=== PATIENT | female | born 1965 | race Asian ===

== ENCOUNTER 2022-09-17 13:27 | Emergency (ER) | payer OTHER, SELFPAY ==
--- NOTE | ~2022-09-17 | XR_ITS ---
EXAMINATION: XR KNEE, LEFT CLINICAL INFORMATION: Laceration rule out foreign body. COMPARISON: None TECHNIQUE: Four views of the left knee. FINDINGS: Bones and soft tissues are normal. No fracture or joint effusion. Alignment is anatomic. Joint spaces are well maintained. No abnormal soft tissue calcification. XR/XR knee LT 2V IMPRESSION: Normal left knee. No radiopaque foreign body found.
[2022-09-17 13:44] VITALS: BP 154/79; PULSE 87; RESP 18; TEMP 36.6; O2SAT 98; BMI 26.2
--- NOTE | 2022-09-17 13:51 | ED_ITS ---
HPI - Wound/Laceration General Chief Complaint: Wound/Laceration <Abida Riley MD - Last Filed: 09/17/22 13:53> Stated Complaint: L knee inj 09/17/22 <Abida Riley MD - Last Filed: 09/17/22 13:53> Time Seen by Provider: 09/17/22 14:24 <Abida Riley MD - Last Filed: 09/17/22 13:53> Source: patient <CASSANDRA Cooper - Last Filed: 09/17/22 15:07> Mode of arrival: ambulatory <CASSANDRA Cooper - Last Filed: 09/17/22 15:07> Limitations: no limitations <CASSANDRA Cooper - Last Filed: 09/17/22 15:07> History of Present Illness HPI narrative: 57-year-old female presenting to the ED with complaints of a laceration to her left knee that occurred 2 days ago in her house when she took a glass plate out of the microwave that shattered and punctured her left knee. She reports that she she taped it. She reports she is not up-to-date on tetanus. She denies any other symptoms complaints concerns or injuries at this time. <CASSANDRA Cooper - Last Filed: 09/17/22 15:07> Onset (ago): day(s) (2) <CASSANDRA Cooper - Last Filed: 09/17/22 15:07> Extremity Location: left: knee <CASSANDRA Cooper - Last Filed: 09/17/22 15:07> Place: home <CASSANDRA Cooper - Last Filed: 09/17/22 15:07> Patient tetanus UTD: No <CASSANDRA Cooper - Last Filed: 09/17/22 15:07> Context: accidental <CASSANDRA Cooper - Last Filed: 09/17/22 15:07> Associated symptoms: none <CASSANDRA Cooper Last Filed: 09/17/22 15:07> Treatments prior to arrival: bandage <CASSANDRA Cooper Last Filed: 09/17/22 15:07> Related Data Home Medications: Previous Rx's Medication Instructions Recorded doxycycline monohydrate 100 mg 100 mg PO BID 10 days #20 tabs 09/17/22 tablet <Abida Riley MD - Last Filed: 09/17/22 13:53> Allergies/Adverse Reactions: Allergies Allergy/AdvReac Type Severity Reaction Status Date / Time No Known Allergies Allergy Unverified 07/19/20 17:46 <Abida Riley MD - Last Filed: 09/17/22 13:53> Review of Systems Review of Systems: Constitutional : No Fever, No Chills, Cardiovascular : No Chest Pain, No SOB Respiratory : No Dyspnea Gastrointestinal : No abdominal pain Musculoskeletal : No Joint Swelling Skin : positive skin laceration, No Foreign bodies, No rash, No surrounding erythema Neuro : No Weakness, No Numbness/tingling Psych : No SI/HI/thoughts of self injury <CASSANDRA Cooper - Last Filed: 09/17/22 15:07> Yes all other systems are reviewed and are negative <CASSANDRA Cooper - Last Filed: 09/17/22 15:07> [facility]LY [facility] Past Medical History Attestation statement: The following information was validated with the patient. <CASSANDRA Cooper - Last Filed: 09/17/22 15:07> Source: old records reviewed and nursing notes reviewed <CASSANDRA Cooper - Last Filed: 09/17/22 15:07> Physical Exam Vital Signs: Vital Signs: Last Vital Signs Temp 97.8 F 09/17/22 13:44 Pulse 87 09/17/22 13:44 Resp 18 09/17/22 13:44 BP 154/79 H 09/17/22 13:44 Pulse Ox 98 09/17/22 13:44 O2 Del Method 09/17/22 13:44 BMI result Body Mass Index 26.2 <Abida Riley MD - Last Filed: 09/17/22 13:53> Vital Signs: Last Vital Signs Temp 97.8 F 09/17/22 13:44 Pulse 87 09/17/22 13:44 Resp 18 09/17/22 13:44 BP 154/79 H 09/17/22 13:44 Pulse Ox 98 09/17/22 13:44 O2 Del Method 09/17/22 13:44 BMI result Body Mass Index 26.2 vital signs have been reviewed as normal and appeared to be correct. Blood pressure normal Heart rate normal. Respiration rate normal. Temperature normal. Oxygen saturation normal. <CASSANDRA Cooper - Last Filed: 09/17/22 15: 07> Appearance: Alert. Oriented X3. No acute distress. Head: Normal external exam. Normocephalic. Atraumatic. Eyes: PERRLA. EOMI. Conjunctiva and sclera normal. Eyelids normal. ENT: Pharynx normal. Uvula midline. Moist mucous membranes. Neck: Normal inspection. Neck supple. FROM. CVS: Normal heart rate and rhythm. Respiratory: No respiratory distress. Painless inspiration. Skin: Skin warm and dry. Normal skin color. Normal skin turgor. Patient with less than 1 cm healing laceration to left knee with mild surrounding erythema around the edges. No streaking/induration/fluctuance or foreign bodies or bony tenderness noted. No additional rashes/lesions/lacerations noted. Extremities: Extremities exhibit normal range of motion. Extremities nontender. Neuro: Oriented X 3. No motor deficit. No sensory deficit. Reflexes normal. Normal steady gait. No focal neuro deficits noted. Vascular: + radial pulses/+ 2 distal pedal pulses/+2 dorsalis pedis b/l. Normal cap refill. No cyanosis noted to upper extremity nails and lower extremity toes nails. <CASSANDRA Cooper - Last Filed: 09/17/22 15:07> Course Reevaluation(s) Reevaluation #1: 57-year-old female came in with old laceration above left knee for 2 days patient did not seek medical attention then came in today concerned of infection, had x-ray of the left knee triage and given 1st dose of doxycycline. <Abida Riley MD - Last Filed: 09/17/22 13:53> Time: 13:51 <Abida Riley MD - Last Filed: 09/17/22 13:53> Reevaluation #2: On exam patient has whole laceration. X-ray obtained and negative for any acute processes. Patient most likely cellulitis infection. Not consistent with abscess. Not consistent with septic joint. Tetanus updated. Will DC home antibiotics instructions return if any new or worsening symptoms follow up with primary care provider. Patient understands agrees with this plan. <CASSANDRA Cooper - Last Filed: 09/17/22 15:07> Time: 15:01 <CASSANDRA Cooper - Last Filed: 09/17/22 15:07> Medications Administered Discontinued Medications Generic Name Dose Route Start Last Admin Trade Name Freq PRN Reason Stop Dose Admin Diphtheria/Tetanus/Acell Pertussis 0.5 ml 09/17/22 14:56 09/17/22 15:03 Diphth,Pertus(Acell),Tet Adult 0.5 Ml Syringe IM 09/17/22 14:57 0.5 ml .ONCE ONE Administration Doxycycline Monohydrate 100 mg 09/17/22 13:50 09/17/22 14:48 Doxycycline Monohydrate 100 Mg Capsule PO 09/17/22 13:51 100 mg ONCE ONE Administration Doxycycline Monohydrate 100 mg 09/17/22 14:49 09/17/22 14:53 Doxycycline Monohydrate 100 Mg Capsule PO 09/17/22 14:50 100 mg ONCE ONE Administration <Abida Riley MD - Last Filed: 09/17/22 13:53> Medications Administered Discontinued Medications Generic Name Dose Route Start Last Admin Trade Name Freq PRN Reason Stop Dose Admin Diphtheria/Tetanus/Acell Pertussis 0.5 ml 09/17/22 14:56 09/17/22 15:03 Diphth,Pertus(Acell),Tet Adult 0.5 Ml Syringe IM 09/17/22 14:57 0.5 ml .ONCE ONE Administration Doxycycline Monohydrate 100 mg 09/17/22 13:50 09/17/22 14:48 Doxycycline Monohydrate 100 Mg Capsule PO 09/17/22 13:51 100 mg ONCE ONE Administration Doxycycline Monohydrate 100 mg 09/17/22 14:49 09/17/22 14:53 Doxycycline Monohydrate 100 Mg Capsule PO 09/17/22 14:50 100 mg ONCE ONE Administration <CASSANDRA Cooper - Last Filed: 09/17/22 15:07> MDM - Wound/Laceration Medical Records Attestation: I reviewed the patient's medical records. <CASSANDRA Cooper - Last Filed: 09/17/22 15:07> Imaging Data Left knee x-ray: Attestation: I personally reviewed and interpreted this imaging study as follows: <CASSANDRA Cooper - Last Filed: 09/17/22 15:07> Radiologist's impression: FINDINGS: Bones and soft tissues are normal. No fracture or joint effusion. Alignment is anatomic. Joint spaces are well maintained. No abnormal soft tissue calcification.? XR/XR knee LT 2V IMPRESSION: Normal left knee. No radiopaque foreign body found. <CASSANDRA Cooper - Last Joshua ed: 09/17/22 15:07> Discharge Plan Discharge Clinical Impression: Laceration, Cellulitis <Abida Riley MD - Last Filed: 09/17/22 13:53> Patient Disposition: Home, Self-Care <Abida Riley MD - Last Filed: 09/17/22 13:53> Instructions: Cellulitis (ED), Laceration Without Closure (ED) <Abida Riley MD - Last Filed: 09/17/22 13:53> Prescriptions: New doxycycline monohydrate 100 mg tablet 100 mg PO BID 10 Days Qty: 20 0RF <Abida Riley MD - Last Filed: 09/17/22 13:53> Referrals: Emerald Mayes PA [Emergency Midlevel Provider] - 2 days (your pcp) <Abida Riley MD - Last Filed: 09/17/22 13:53>
[2022-09-17] MEDS: Doxycycline Monohydrate 100 MG CAPSULE PO ×2 (14:48→14:53)
[2022-09-17] MEDS: Diphth,Pertus(ACell),Tet Adult 0.5 ML SYRINGE IM (15:03)
--- OUTSIDE RECORDS SUMMARY | 2022-09-17 15:16 | XMS_ITS | Continuity of Care Document ---
:1965 Author Organization [facility] Resendiz p Address [address] [place] [address], [address] [place] [id number]- Care Team Providers Name Role Phone Dorian Locke MD, Holden Franklin Primary Care Physician [place] [facility] [place]20 [facility] [facility] [address], [address] [place] [id number] Attending Physician: Nanette Nieto Admitting Physician: Nanette Nieto Referring Physician: AdmtrNanette Allergies, Adverse Reactions, Alerts Substance Reaction Severity Status NKA Active Medications oxybutynin 10 mg/24 hr oral tablet, extended release 1 tablet = 10 mg, By Mouth, Daily, # 30 tablet, 5 Refills, Maintenance, 11/12/20 10:16:00 EST, ER Tablet, [place], [place] - [phone], Partial fill upon patient request if the prescription is for a schedule II opioid drug., 149, cm,... Start Date: 11/12/20 Status: Orderedproaceline: Collagen skin proaceline: Collagen skin, Refills 0, Maintenance, 10/08/20 9:30:00 EST, Supply Start Date: 10/08/20 Status: Ordered Problem List Condition Effective Dates Status Health Status Informant Hyperlipidemia LDL goal Active <130(Confirmed) HTN (hypertension)(Confirmed) Active Urinary frequency(Confirmed) Active Hepatitis(Confirmed) Active Nocturia(Confirmed) Active Overweight(Confirmed) Active Sacroiliac joint pain(Confirmed) Active Vertigo(Confirmed) Active Social History Social History Type Response Smoking Status Never (less than 100 in life time) entered on: 10/08/20 Sex
== END 2022-09-17 15:28 | disposition home or self-care (01) ==
PROVIDERS: Emergency Provider Emergency Medicine Emergency Medical Services
DX: L03.116 Cellulitis of left lower limb (principal); S81.012A Laceration without foreign body, left knee, initial encounter; W25.XXXA Contact with sharp glass, initial encounter; Y93.G1 Activity, food preparation and clean up; Y92.010 Kitchen of single-family (private) house as the place of occurrence of the external cause; Y99.9 Unspecified external cause status
CPT/HCPCS: 73560; 90471; 90715; 99283; 99284

== ENCOUNTER 2025-07-28 14:03 | Emergency (ER) | payer OTHER, SELFPAY ==
[2025-07-28 14:15] VITALS: BP 162/71; PULSE 107; RESP 18; TEMP 37.2; O2SAT 96; BMI 26.1
[2025-07-28 14:49] LABS: Appearance Urine Turbid; PH 6.5 (5.0-9.0); Specific Gravity - Urine 1.025 (1.005-1.025); UMIC TRIGGER UACC YES
[2025-07-28 14:56] LABS: UACC Culture Trigger YES
--- NOTE | 2025-07-28 16:51 | ED.FEMALEGU ---
HPI - Female Genitourinary General Chief complaint: Urogenital-Female Stated complaint: enriquez when urinating, vaginal bleeding? Time Seen by Provider: 07/28/25 16:43 Source: patient, RN notes reviewed and old records reviewed Mode of arrival: ambulatory Limitations: no limitations History of Present Illness ED Provider: Raul CARRILLO Narrative: 59-year-old female presents for evaluation of burning with urination Patient reports her symptoms started this morning pain She reports she has noticed a significant amount of blood in the urine with some clots. She reports this has happened in the past and improved with the antibiotics. She has not seen a urologist Denies any fevers, chills On review of her external medical history she was given cefuroxime in the nitrofurantoin in November of this year Related Data Previous Rx's ?Medication ?Instructions ?Recorded doxycycline monohydrate 100 mg 100 mg PO BID 10 days #20 tabs 09/17/22 tablet nitrofurantoin 100 mg PO Q12H 7 days #14 caps 07/28/25 monohydrate/macrocrystals 100 mg capsule (Macrobid) phenazopyridine 200 mg tablet 200 mg PO TID PRN pain 6 doses #6 07/28/25 (Pyridium) tabs Allergies Allergy/AdvReac Type Severity Reaction Status Date / Time No Known Allergies Allergy Verified 07/28/25 14:16 Review of Systems Constitutional: Constitutional: Denies body ache(s), Denies chills and Denies fever(s) Gastrointestinal: Gastrointestinal: Denies abdominal pain Genitourinary: Genitourinary: Reports hematuria, Reports dysuria and Reports pelvic pain PMFSH Social History Social History Advance Directives: No Advance Directives Information Provided: No Physical Exam Vital Signs: Vital Signs: Last Vital Signs Temp 98.9 F 07/28/25 16:59 Pulse 107 H 07/28/25 16:59 Resp 18 07/28/25 16:59 BP 162/71 H 07/28/25 16:59 Pulse Ox 96 07/28/25 16:59 O2 Del Method Room Air 07/28/25 16:59 BMI result Body Mass Index 26.1 Const: General: healthy appearing, comfortable, no acute distress, alert and awake Nutritional Appearance: well nourished Orientation/consciousness: patient oriented x3 HEENT: Head: Yes normocephalic and Yes atraumatic Eyes: Eyelids: Yes eyelids normal Conjunctivae: conjunctivae normal Sclerae: sclerae normal Corneas: corneas normal Pupils: Equal, round and reactive pupils present EOM: EOMs intact bilaterally Neck: Neck: Yes full ROM Resp: Effort & Inspection: normal respiratory effort, able to speak in complete sentences and not labored Skin: General skin exam: elasticity normal Neuro: General: patient oriented x3 Cranial nerves: Yes Equal, round and reactive pupils present and Yes Bilaterally intact EOM present Cognition (Neuro): normal cognition Medical Decision Making Medical Decision Making MDM Narrative: 59-year-old female presents for evaluation of burning with urination and blood in the urine. Her urinalysis consistent with a UTI. She is quite well appearing, afebrile, she is hypertensive not hypotensive. She is slightly tachycardic which could be due to anxiety versus the UTI. We will treat with nitrofurantoin b.i.d. times 1 week. She will be referred to Urology given the hematuria Differential Diagnosis Differential Diagnoses: The differential diagnosis associated with the presentation includes UTI Obstructive uropathy Cystitis Bladder mass Lab Data MDM Lab Attestation statement: I reviewed the patient's lab results. Urinalysis with a significant amount of blood but also leukocyte esterase, white blood cell clumps Labs: Lab Results 07/28/25 Range/Units 14:26 Urine Color RED Urine Appearance Turbid Urine pH 6.5 (5.0-9.0) Ur Specific [place] 1.025 (1.005-1.025) Urine Protein 300 (3+) H (Neg-Trace) mg/dL Urine Glucose (UA) See Note (Negative) mg/dL Urine Ketones Trace (Negative) mg/dL Urine Blood Large (3+) H (Negative) Urine Nitrite See Note (Negative) Ur Leukocyte Esterase Small (1+) H (Negative) Urine RBC >20 H (0-2) /HPF Urine WBC 11-20 (0-5) /HPF Urine WBC Clumps Present Ur Squamous Epith Cells 0-2 (0-2) /HPF Urine Bacteria None Seen (None Seen) Hyaline Casts 6-10 (0-2) /LPF RBC Casts Present Discharge Plan Discharge Clinical Impression: Urinary tract infection Patient Disposition: Home, Self-Care Instructions: Urinary Tract Infection in Women (ED) Additional Instructions: Take the Macrobid twice daily for 1 week. You may also use Pyridium to help with the bladder discomfort. Follow up with Urology given the blood in the urine You may require a cystoscopy Follow up with your primary doctor, return for new or worsening symptoms [facility] will be contacting you within 2 business?days after being discharged from the Emergency?Department.? During this?phone call, they will inform you when your follow up appointment will be scheduled. If you have not received a call from [facility] after 2 business?days, please call the?office at [phone]. Prescriptions: New phenazopyridine [Pyridium] 200 mg tablet 200 mg PO TID PRN (Reason: pain) Qty: 6 0RF nitrofurantoin monohyd/m-cryst [Macrobid] 100 mg capsule 100 mg PO Q12H 7 Days Qty: 14 0RF Rx Instructions: must administer with a meal/food No Action doxycycline monohydrate 100 mg tablet 100 mg PO BID 10 Days Qty: 20 0RF Referrals: [facility] [Provider Group, Urology] Referral Note: hematuria Interventions: ED Discharge Assessment Last Done: 07/28/25 16:59 Discharge Date/Time: 07/28/25 17:00 Print Language: Bruneian
--- OUTSIDE RECORDS SUMMARY | 2025-07-28 16:55 | XMS_ITS | Clinical Summary ---
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 Name Role Phone Unavailable Primary Care Provider Unavailabl e Social History Tobacco Use Types Packs/Day Years Used Date Smoking Tobacco: Never Assessed Comments Unknown Sex and Gender Information Value Date Recorded Sex Assigned at Not on file Legal Sex Female 4:14 PM EST Gender Identity Not on file Sexual Orientation Not on file Plan of Treatment Health Maintenance Due Date Last Done Comments Hepatitis C Virus Screening 1965 HIV Screening 1980 DTaP/Tdap/Td Vaccines (1 - Tdap) 1986 Hepatitis B Vaccines (1 of 3 - 19+ 3-dose series) 08/02 Pneumococcal Vaccines 50+ (1 of 1 - PCV) 2017 Zoster (Shingles) Vaccine (1 of 2) 2017 COVID-19 Vaccine ( - season) 2025
--- OUTSIDE RECORDS SUMMARY | 2025-07-28 16:55 | XMS_ITS ---
Author Name [facility] Organization Unknown Care Team Organization Name Specialty Phone Email Start Date End Da te [facility] JAYJAY PEREZ Primary Care [email or web address] 05/07/2023 06/20/2024 [facility] Ranjeet Montague Primary Care 09/09/2022 06/20/2024
[2025-07-28 16:59] VITALS: BP 162/71; PULSE 107; RESP 18; TEMP 37.2; O2SAT 96
== END 2025-07-28 17:00 | disposition home or self-care (01) ==
PROVIDERS: Emergency Provider Emergency Medicine
DX: N39.0 Urinary tract infection, site not specified (principal)
CPT/HCPCS: 81001; 87086; 99282; 99283

== ENCOUNTER 2025-09-10 17:39 | Emergency (ER) | payer OTHER, SELFPAY ==
[2025-09-10 17:59] VITALS: BP 141/63; PULSE 85; RESP 18; TEMP 36.6; O2SAT 98; BMI 26.1
--- NOTE | 2025-09-10 18:02 | ED_ITS ---
HPI - General Adult General Chief complaint: Urogenital-Female Stated complaint: ? UTI Time Seen by Provider: 09/10/25 19:38 Source: patient Mode of arrival: ambulatory Limitations: no limitations History of Present Illness ED Provider: Mikael Morillo HPI narrative: 60 yold female presents to ED for dysuria and mild low back pain. Patient denies any nausea, vomiting, flank pain, fever, chills or abdominal pain. Patient denies any vaginal discharge or vaginal bleeding. Related Data Previous Rx's ?Medication ?Instructions ?Recorded doxycycline monohydrate 100 mg 100 mg PO BID 10 days # 20 tabs 09/17/22 tablet nitrofurantoin 100 mg PO Q12H 7 days #14 ca ps 07/28/25 monohydrate/macrocrystals 100 mg capsule (Macrobid) phenazopyridine 200 mg tablet 200 mg PO TID PRN pain 6 doses #6 07/28/25 (Pyridium) tabs naproxen 500 mg tablet 500 mg PO BID PRN pain #14 t abs 09/10/25 nitrofurantoin 100 mg PO Q12H 7 days #14 ca ps 09/10/25 monohydrate/macrocrystals 100 mg capsule (Macrobid) Allergies Allergy/AdvReac Type Severity Reaction Status Date / Time No Known Allergies Allergy Verified 09/10/25 18:03 Review of Systems 2 Review of Systems: Dysuria and back pain Yes all other systems are reviewed and are negative [facility], [facility] Social History Social History Advance Directives: No Advance Directives Information Provided: Yes Do you have a plan to hurt others: No Plan Physical Exam ED Vital Signs: Vital Signs - 24 hr 09/10/25 17:59 09/10/25 20:00 Temperature 98 F 98 F Pulse Rate 85 85 Respiratory Rate 18 18 Blood Pressure 141/63 H 141/63 H Pulse Oximetry 98 98 Oxygen Delivery Method Room Air Room Air BMI result Body Mass Index 26.1 Const General: cooperative, healthy appearing, comfortable, no acute distress, well developed, alert, awake and Physically active [facility] Head: Yes normal to inspection, Yes No palpable skull fracture present, Yes normocephalic and Yes atraumatic Eyes General: appearance normal, both eyes and all related structures Neck Neck: Yes normal visual inspection, Yes full ROM, Yes no lymphadenopathy, Yes no meningeal signs, Yes trachea midline, Yes supple, No anterior neck swelling and No tender Chest Chest palpation & inspection: normal inspection of the chest and normal palpation of entire chest wall Resp Effort & Inspection: normal respiratory effort and able to speak in complete sentences Auscultation: clear to auscultation bilaterally Cardio Jugular venous distension: no JVD Heart sounds: S1 normal heart sound present and S2 normal heart sound present GI Inspection: Yes normal to inspection Palpation (GI): Soft to palpation, not firm, nontender, no guarding and not rigid General: Yes no CVA tenderness Back/Spine/Pelvis Back: no CVA tenderness and No back tenderness Skin General skin exam: no rashes or lesions noted, elasticity normal and turgor normal Neuro General: gait normal, tone normal, moves all extremities, Normal light touch and pain sensation, no meningeal signs, no focal motor deficits, CN's II-XI intact bilaterally and normal sensation to monofilament Extrem General: Yes normal to inspection, Yes full ROM and Yes capillary refill normal Psych Appearance: grossly normal, well kempt and not disheveled Course Course Course Narrative: RME: 60 yold female presents to the ED For dysuria and some back pain. Patient denies any nausea, vomiting or abdominal pain. Patient denies any fever chills. UA labs ordered Medical Decision Making Medical Decision Making [facility] Narrative: [age] year female presents to ED for UTI symptoms and low back pain. Physical exam does not indicate kidney stones or pyelonephritis. Negative CVA tenderness. White blood cell count only 11. Vital signs are stable. Patient will be discharged on antibiotic. Patient explained worrisome signs informed return to the ED immediately. Not suspecting kidney stones, appendicitits, polynephritits, sepsis, or any other life threatneing etiology. Differential Diagnosis Differential Diagnoses: The differential diagnosis associated with the presentation includes (Pyelonephritis, kidney stones, UTI) Admission/Observation Consideration of admission/observation: Escalation of care including admission/observation considered Lab Data [facility] Lab Attestation statement: I reviewed the patient's lab results. 09/10/25 18:15 09/10/25 18:15 Labs: Lab Results 09/10/25 Range/Units 18:15 WBC 11.7 H (4.8-10.8) X10*3/uL RBC 4.18 L (4.20-5.50) X10*6/uL Hgb 13.2 (12.0-16.0) g/dl Hct 40.2 (37.0-47.0) % MCV 96.2 (80.0-98.0) fL MCH 31.6 (27.0-33.0) pg MCHC 32.8 (31.0-35.0) g/dl RDW 12.8 (11.0-16.0) % Plt Count 280 (160-400) X10*3/uL MPV 8.7 L (9.4-12.3) fL Immature Gran % (Auto) 0.3 (0.0-0.4) % Neut % (Auto) 64.7 (45-73) % Lymph % (Auto) 29.2 (20-40) % [place] % (Auto) 5.3 (2-11) % Eos % (Auto) 0.4 (0-4) % Baso % (Auto) 0.1 (0-2) % Lymph # (Auto) 3.4 (1.2-4.9) X10*3/uL [place] # (Auto) 0.6 (0.1-1.2) X10*3/uL Eos # (Auto) 0.1 (0.0-0.4) X10*3/uL Baso # (Auto) 0.0 (0.0-0.2) X10*3/uL Abs Immat Gran (auto) 0.04 H (0.00-0.03) X10*3/uL Absolute Neuts (auto) 7.5 (2.0-8.3) x10*3/uL Absolute Nucleated RBC 0.000 (0.0-0.012) X10*3/uL Nucleated RBC % (auto) 0.0 (0.0-0.2) /100WBC Sodium 140 (135-145) mmol/L Potassium 4.1 (3.3-5.1) mmol/L Chloride 102 (96-108) mmol/L Carbon Dioxide 28 (22-29) mmol/L Anion Gap 14 (12-20) BUN 15 (9-16) mg/dL Creatinine 0.69 (0.5-1.4) mg/dL Estim Creat Clear Calc 75.3 Estimated GFR > 60 Random Glucose 103 (60-115) mg/dL Calcium 9.2 (8.4-10.2) mg/dL Total Bilirubin 0.3 (0.0-1.0) mg/dL AST 18 (5-31) U/L ALT 17 (0-31) U/L Alkaline Phosphatase 136 H (39-117) U/L Total Protein 7.9 (6.5-8.0) g/dL Albumin 4.7 (3.5-5.0) g/dL Urine Color [place] Urine Appearance Clear Urine pH 7.5 (5.0-9.0) Ur Specific [place] 1.010 (1.005-1.025) Urine Protein Trace (Neg-Trace) mg/dL Urine Glucose (UA) 100 H (Negative) mg/dL Urine Ketones Negative (Negative) mg/dL Urine Blood Trace (Negative) Urine Nitrite Positive H (Negative) Ur Leukocyte Esterase Moderate (2+) H (Negative) Urine RBC 0-2 (0-2) /HPF Urine WBC >50 H (0-5) /HPF Ur Squamous Epith Cells 0-2 (0-2) /HPF Urine Bacteria Trace (None Seen) Hyaline Casts 0-2 (0-2) /LPF Independent Historian Clinical information obtained from an independent historian. History obtained from or confirmed by: Other (Patient) Prescription Management I considered prescription management with: Antibiotic Discharge Plan Discharge Clinical Impression: Urinary tract infection Patient Disposition: Home, Self-Care Instructions: Acute Urinary Retention in Women (ED) Additional Instructions: Reccommend Follow Up with PCP. Return to the ED immediately for any abdominal pain, nausea, vomiting, flank pain, fever, chills, bloody urine, any other concerning symptoms. Prescriptions: New nitrofurantoin monohyd/m-cryst [Macrobid] 100 mg capsule 100 mg PO Q12H 7 Days Qty: 14 0RF Rx Instructions: must administer with a meal/food naproxen 500 mg tablet 500 mg PO BID PRN (Reason: pain) Qty: 14 0RF No Action doxycycline monohydrate 100 mg tablet 100 mg PO BID 10 Days Qty: 20 0RF phenazopyridine [Pyridium] 200 mg tablet 200 mg PO TID PRN (Reason: pain) Qty: 6 0RF nitrofurantoin monohyd/m-cryst [Macrobid] 100 mg capsule 100 mg PO Q12H 7 Days Qty: 14 0RF Rx Instructions: must administer with a meal/food Referrals: Alexi Mayen MD [Primary Care Provider, Internal Medicine] - 2 days Referral Note: UTI Clinical Impression: Urinary tract infection Stand Alone Forms: Work/School Release Interventions: ED Discharge Assessment Last Done: 09/10/25 20:00 Discharge Date/Time: 09/10/25 21:35 Print Language: Belarusian
[2025-09-10 18:20] LABS: MANUAL DIFF FLAG NO
[2025-09-10 18:24] LABS: Appearance Urine Clear; Glucose Urine UA 100 mg/dL (Negative); PH 7.5 (5.0-9.0); Specific Gravity - Urine 1.010 (1.005-1.025); UMIC TRIGGER UACC YES
[2025-09-10 18:25] LABS: Hematocrit 40.2 % (37.0-47.0); Hemoglobin 13.2 g/dl (12.0-16.0); Imm Gran Abs Auto 0.04 X10*3/uL (0.00-0.03); Imm Gran Pct Auto 0.3 % (0.0-0.4); Lymphocytes Absolute Auto 3.4 X10*3/uL (1.2-4.9); Mean Corpuscular HGB Conc 32.8 g/dl (31.0-35.0); Mean Corpuscular Hemoglobin 31.6 pg (27.0-33.0); Mean Corpuscular Volume 96.2 fL (80.0-98.0); NRBC Abs Auto 0.000 X10*3/uL (0.0-0.012); NRBC Pct Auto 0.0 /100WBC (0.0-0.2); Platelet Count 280 X10*3/uL (160-400); Red Blood Count 4.18 X10*6/uL (4.20-5.50); White Blood Count 11.7 X10*3/uL (4.8-10.8)
[2025-09-10 18:46] LABS: Alanine Aminotransferase 17 U/L (0-31); Albumin Level 4.7 g/dL (3.5-5.0); Alkaline Phosphatase 136 U/L (39-117); Anion Gap 14 (12-20); Aspartate Amino Transferase 18 U/L (5-31); Blood Urea Nitrogen 15 mg/dL (9-16); Calcium 9.2 mg/dL (8.4-10.2); Carbon Dioxide 28 mmol/L (22-29); Chloride 102 mmol/L (96-108); Creatinine Clr Calc Pharmacy 75.3; Estimated Glomerular Filt Rate > 60; Potassium 4.1 mmol/L (3.3-5.1); Sodium 140 mmol/L (135-145); Total Protein 7.9 g/dL (6.5-8.0)
[2025-09-10 18:52] LABS: UACC Culture Trigger YES
--- OUTSIDE RECORDS SUMMARY | 2025-09-10 19:55 | XMS_ITS | Clinical Summary ---
Author Organization [facility] Address [address] [place] [address] Care Team Providers Care Rn Field Name Role Phone Unavailable Primary Care Provider [...] Vaccine (1 of 2) 2017 COVID-19 Vaccine (1 - season) 2025 RSV Vaccine 50 years and old er and Patients (1 - 1-dose 75+ series) 2042
--- OUTSIDE RECORDS SUMMARY | 2025-09-10 19:55 | XMS_ITS | Clinical Summary ---
Author Organization [facility] [address] [place] [address] [place] [phone] Phone Care Team Providers Care Recreation Teacher Name Role Phone Alexi Mayen MD Primary Care Provider Allergies No known active allergies Medications PARoxetine (PAXIL) 20 mg tabletIndicatio ns:Anxiety disorder, unspecified Take 1 tablet (20 mg total) by mouth 1 (one) time each day in the morning. 90 tablet 1 5 Active lisinopriL (PRINIVIL,ZESTR IL) 2.5 mg tablet TAKE 1 TABLET ONCE DAILY 90 tablet 5 Active pravastatin (PRAVACHOL) 40 mg tablet TAKE 1 TABLET ONCE DAILY 30 tablet 2 5 Active lisinopriL (PRINIVIL,ZESTR IL) 2.5 mg tablet TAKE 1 TABLET ONCE DAILY 90 tablet 5 08/16/20 25 Discontinued pravastatin (PRAVACHOL) 40 mg tablet TAKE 1 TABLET ONCE DAILY 90 tablet 5 08/16/20 25 Discontinued Active Problems Problem Noted Date Diagnosed Date Itchy eyes 02/09/2024 Lump in chest 02/09/2024 Vitamin D deficiency 02/09/2024 Prediabetes 01/03/2021 Hyperlipidemia LDL goal <130 12/10/2017 Overweight (BMI 25.0-29.9) 09/03/2016 Vertigo 09/03/2016 Essential hypertension 10/02/2009 Hepatitis B 11/20/2008 Overview (08/15/2024): Hep b s ab positive, hep bs AG negative, hep B core positive. HepBe ab positive, HepBe Ag negative Anxiety and depression 08/03/2008 Immunizations Immunization Administration Dates Next Due DTaP, Unspecified 11/08/2016 Influenza Quadravalent, MDCK , 0.5ml, preservative free (Flucelvax) 6mo and older 09/05/2022,09/20/2021 Influenza trivalent, 0.5mL, preservative free (Fluarix; FluLaval; Fluzone) ages 6mo and older (Afluria) 3 years and older 07/23/2020,07/12/2018,07/01/2017,2015,07/12/2015,08/30/2014,08/11/2013,1 ,07/30/2011,2010, 009 Pfizer SARS-CoV-2 COVID-19, mRNA, LNP-S, preservative free 03/19/2021,02/17/2021 Td Tetanus diptheria (Tdvax) 7yo and older 11/08/2016 Tdap Tetanus diptheria acell ular pertussis (Boostrix; Adacel) 7yo and older 11/29/2008 Zoster recombinant (Shingrix ) 19yo and older 11/20/2019,09/21/2019 Surgical History Surgery Date Site/Laterality Comments OTHER SURGICAL HISTORY Bilateral PROCEDURE: IMPLANT BREAST SILICONE/EQ COLONOSCOPY 01/28/2018 PROCEDURE: HISTORICAL COLONOSCOPY; COMMENT: negative Medical History Medical History Date Comments HTN (hypertension) DX:HTN (hyper tension) Anxiety DX:Anxiety Family History Medical History Relation Name Comments Blindness Neg Hx Breast cancer Neg Hx Cataracts Neg Hx Glaucoma Neg Hx Macular degeneration Neg Hx Strabismus Neg Hx Relation Name Status Comments Father Alive Mother Alive htn Social History Tobacco Use Types Packs/Day Years Used Date Smoking Tobacco: Never Smokeless Tobacco: Never Alcohol Use Standard Drinks/Week Comments No 0 (1 standard drink = 0.6 oz pur e alcohol) Comments Unknown Sex and Gender Information Value Date Recorded Sex Assigned at Female 11/11/2024 8:37 PM EST Legal Sex Female 1:42 AM EST Gender Identity Female 11/11/2024 8:37 PM EST Sexual Orientation Straight 11/11/2024 8: 37 PM EST Obstetrics History Last Filed Vital Signs Vital Sign Reading Time Taken Comments Blood Pressure 112/66 01/20/2025 9:41 AM EDT Pulse 71 01/20/2025 9:41 AM EDT Temperature 36.6 C (97.8 F) 01/20/2025 9:41 AM EDT Respiratory Rate 12 01/20/2025 9:41 AM EDT Oxygen Saturation 96% 11/11/2024 7:12 PM EST Inhaled Oxygen Concentration - - Weight 64 kg (141 lb) 01/20/2025 9:41 AM EDT Height 154.9 cm (5' 1 ) 01/20/2025 9:41 AM EDT Body Mass Index 26.64 01/20/2025 9:41 AM EDT Plan of Treatment Upcoming Encounters Date Type Department Care Team (Late st Contact Info) Description 10/25/2025 4:00 PM EST Office Visit Adult Medicine [facility] [place] [facility] [address] [place] [phone] Alexi Mayen MD [address] [place] [address] Health Maintenance Due Date Last Done Comments Hepatitis A Vaccines (1 of 2 - Risk 2-dose series) 1986 Hepatitis B Vaccines (1 of 3 - 19+ 3-dose series) 1986 Pneumococcal Vaccine: 50+ Years (1 of 1 - PCV) 2017 RSV Immunization Adult Patients (1 - Risk 50-74 years 1-dose series) 2017 Hepatitis C Screening 10/11/2022 Social Influencers of Health Screening 10/11/2022 Hypertension/CHF/CAD Annual BMP Blood Test 07/29/2024 07/29/2023 Depression Screening 11/02/2024 05/16/2024 COVID-19 Vaccine ( season) 2025 09/18/2021, 03/19/2021, 02/17/2021 Influenza Vaccine (#1) 2025 , 09/05/2022, 09/20/2021, Additional history exists Cervical Cancer Screening: HPV 09/17/2025 09/17/2020 Breast Cancer Screening 02/08/2026 02/09/20 24, 04/16/2022, 07/30/2020, Additional history exists Colorectal Cancer Screening: Colonoscopy 01/29/2028 01/28/2018 Cholesterol Screening (Lipid Panel) 07/29/2028 07/29/2023, 07/29/2023 DTaP,Tdap,and Td Vaccines (5 - Td or Tdap) 09/17/2032 09/17/2022, 11/08/2016, 11/08/2016, Additional history exists Zoster Vaccines Completed 11/20/2019, 09/21/2019 HIV Screening Completed 07/29/2023 HIB Vaccines Aged Out No longer eligi ble based on patient's age to complete this topic HPV Vaccines Aged Out No longer eligi ble based on patient's age to complete this topic IPV Vaccines Aged Out No longer eligi ble based on patient's age to complete this topic MMR Vaccines Aged Out No longer eligi ble based on patient's age to complete this topic Meningococcal ACWY Vaccine Aged Out N o longer eligible based on patient's age to complete this topic Meningococcal B Vaccine Aged Out No l onger eligible based on patient's age to complete this topic RSV Immunization Patients Under 20 months Aged Out No longer eligible based on patient's age to complete this topic Varicella Vaccines Aged Out No longer eligible based on patient's age to complete this topic Procedures Procedure Name Priority Date/Time Associated Diagnosis Comments DEPRESSION SCREENING Routine 05/16/2024 SCREENING MAMMOGRAPHY BI 2-VIEW BREAST INC CAD Routine 02/09/2024 1:25 PM EDT Encounter for general adult medical examination without abnormal findings HIV SCREENING Routine 07/29/2023 ANNUAL BMP BLOOD TEST Routine 07/29/2023 LIPID PANEL Routine 07/29/2023 HPV Routine 09/17/2020 from Last 3 Months or Most Recently Relevant to Health Maintenance Results * Depression Screening (05/16/2024) HM Depression Screening abstracted us Historical Provider HEALTH MAINTENANCE Final Result * SCREENING MAMMOGRAPHY BI 2-VIEW BREAST INC CAD (02/09/2024 1:25 PM EDT) Anatomical Region Laterality Modality Radiographic Marah ging 07/21/2023 3:53 PM EDT Narrative 02/10/2024 12:40 PM EDT This is a summary report. The complete report is available in the patient's medical record. If you cannot access the medical record, please contact the sending organization for a detailed fax or copy. Full field digital screening tomosynthesis mammography, reviewed with CAD and compared to previous. Both standard and implant displaced views were obtained bilaterally. Bilateral subcutaneous silicone implants remain appropriately positioned and configured. Note is made that a reported palpable abnormality between the breasts on the chest wall could not be visualized mammographically. Please refer to the ultrasound report from the same day. The breasts are composed of fatty and fibroglandular tissue. No suspicious mass, architectural distortion or suspicious calcifications are identified. IMPRESSION: : No mammographic evidence of malignancy. BIRADS 1-Negative; N. 5 year breast cancer risk assessment 0.9 % Lifetime breast cancer risk assessment 4.2 % Breast cancer risk category Low (<15%) Procedure Note Cesar Stephens MD - 06/20/2024 This is a summary report. The complete report is available in thepatient's medical record. If you cannot access the medical record, pleasecontact the sending organization for a detailed fax or copy. Full field digital screening tomosynthesis mammography, reviewed with CADand compared to previous. Both standard and implant displaced views wereobtained bilaterally. Bilateral subcutaneous silicone implants remainappropriately positioned and configured. Note is made that a reportedpalpable abnormality between the breasts on the chest wall could not bevisualized mammographically. Please refer to the ultrasound report fromthe same day. The breasts are composed of fatty and fibroglandulartissue. No suspicious mass, architectural distortion or suspiciouscalcifications are identified. IMPRESSION: : No mammographic evidence of malignancy. BIRADS 1-Negative; N. 5 year breast cancer risk assessment 0.9 % Lifetime breast cancer risk assessment 4.2 % Breast cancer risk category Low (<15%) Alexi Mayen MD IMG XR PROCEDURES Final Res ult * Annual BMP Blood Test (07/29/2023) Pathologist [facility] Annual BMP Blood Test abstracted Result [facility] Historical Provider HEALTH MAINTENANCE Final Result * HIV Screening (07/29/2023) [facility] HIV Screening abstracted Result [facility] Historical Provider HEALTH MAINTENANCE Final Result * (ABNORMAL) Lipid panel (07/29/2023) [facility] LDL/HDL Ratio 3 0 - 4 Triglycerides 178(A) 0 - 150 mg/dL Cholesterol 194 0 - 200 mg/dL HDL 60 >=40 mg/dL LDL Cholesterol 99 0 - 100 mg/dL Blood Venous blood specimen / Unknown Result [facility] Historical Provider LAB BLOOD ORDERABLES Porsha l Result * Cervical Cancer Screening: HPV (09/17/2020) [facility] Cervical Cancer Screening: HPV negative, abstracted Result [facility] Historical Provider HEALTH MAINTENANCE Final Result from Last 3 Months or Most Recently Relevant to Health Maintenance Additional Health Concerns Infection Onset Date Last Indicated ESBL 11/11/2024 11/11/2024 Insurance [facility] Care Teams Recreation Teacher Relationship Specialty Start Date End [place] [id number] [facility] - General 03/09/23
[2025-09-10 20:00] VITALS: BP 141/63; PULSE 85; RESP 18; TEMP 36.6; O2SAT 98
== END 2025-09-10 21:35 | disposition home or self-care (01) ==
PROVIDERS: Physician Assistant; Emergency Provider Emergency Medicine; PCP Internal Medicine
DX: N39.0 Urinary tract infection, site not specified (principal); R30.0 Dysuria; M54.50 Low back pain, unspecified
CPT/HCPCS: 36415; 80053; 81001; 85025; 87086; 87088; 87186; 99282; 99283